=== PATIENT | male | born 1935 | race Caucasian/White ===

== ENCOUNTER 2022-03-19 07:44 | Day surgery (SDC) | payer MEDICARE, BC ==
[~2022-03-19] VITALS: Ht 188 cm; Wt 95.5 kg
[2022-03-19 07:57] VITALS: BP 125/66
[2022-03-19] MEDS ORDERED: ACYC200C PO (08:04)
[2022-03-19] MEDS ORDERED: [UNRECOGNIZED DRUG - CODE] PO (08:05)
[2022-03-19] MEDS ORDERED: ATOR-2 PO (08:05)
[2022-03-19] MEDS ORDERED: CARV3.122 PO (08:06)
[2022-03-19] MEDS ORDERED: CHOL50004 PO (08:07)
[2022-03-19] MEDS ORDERED: CRAN450T4 PO (08:08)
[2022-03-19] MEDS ORDERED: CINN500C16 PO (08:08)
[2022-03-19] MEDS ORDERED: CYAN-51 PO (08:09)
[2022-03-19] MEDS ORDERED: FOLI1TAB27 PO (08:10)
[2022-03-19] MEDS ORDERED: OMEG-165 PO (08:10)
[2022-03-19] MEDS ORDERED: FURO40TA4 PO (08:11)
[2022-03-19] MEDS ORDERED: glucosamine (08:12)
[2022-03-19] MEDS ORDERED: GUAI600T45 PO (08:12)
[2022-03-19] MEDS ORDERED: PANT-47 PO (08:13)
[2022-03-19] MEDS ORDERED: MAGN500C4 PO (08:13)
[2022-03-19] MEDS ORDERED: MULT-1085 PO (08:14)
[2022-03-19] MEDS ORDERED: POTA2TAB17 (08:15)
[2022-03-19] MEDS ORDERED: SACU1TAB (08:16)
[2022-03-19] MEDS ORDERED: FOLI400T4 PO (08:16)
[2022-03-19] MEDS ORDERED: TURM500C4 PO (08:17)
[2022-03-19] MEDS ORDERED: ASCO-294 PO (08:18)
[2022-03-19] MEDS ORDERED: GUAI118S13 PO (08:19)
[2022-03-19] MEDS ORDERED: ALBU0.63 NEB (08:19)
[2022-03-19] MEDS ORDERED: LACT10SO57 PO (08:20)
[2022-03-19] MEDS ORDERED: NITR0.4T48 SL (08:20)
[2022-03-19] MEDS ORDERED: fentaNYL/PF 50MCG/1 ML 2ML syringe ONE (08:52)
[2022-03-19] MEDS ORDERED: diphenhydrAMINE 50 mg/ml inj ONE (08:52)
[2022-03-19] MEDS ORDERED: LIDOcaine Viscous 15ml cup ONE (08:52)
[2022-03-19] MEDS ORDERED: MIDAZolam 1 MG/ML 5ML VIAL ONE (08:52)
[2022-03-19 09:20] VITALS: BP 112/69
[2022-03-19 09:30] VITALS: BP 119/67
[2022-03-19 09:40] VITALS: BP 121/68
[2022-03-19 09:50] VITALS: BP 136/76
== END 2022-03-19 10:00 | disposition home or self-care (01) ==
LOC: GI LAB 07:44
PROVIDERS: ATTEND Internal Medicine Gastroenterology
DX: I85.00 Esophageal varices without bleeding (principal); K29.70 Gastritis, unspecified, without bleeding
CPT/HCPCS: 43239; J1200; J2250; J3010; Z7512; 88305; 99152; A4620